=== PATIENT | male | born 1960 | race Caucasian/White ===

== ENCOUNTER 2017-01-21 19:29 | Emergency (ER) | payer OTHER, SELFPAY ==
[2017-01-21] MEDS ORDERED: Sodium Chloride 0.9% 10 ML Syringe FLUSH PRN ×2 (19:53→20:41)
[2017-01-21] MEDS ORDERED: HYDROmorphone 1 MG/ML Syringe IVPUSH ONE ×2 (19:53→20:14)
[2017-01-21] MEDS ORDERED: Ondansetron 4 MG/2 ML SDV IVPUSH ONE (19:54)
[2017-01-21] MEDS ORDERED: Ketorolac 30 MG/ML SDV IVPUSH ONE (19:54)
[2017-01-21] MEDS ORDERED: Iopamidol 612 MG/ML 150 ML Bottle IV SCH (20:45)
--- NOTE | 2017-01-21 23:21 | EDM.PDOC ---
ED HPI GENERAL MEDICAL PROBLEM - General Chief Complaint: Flank Pain Stated Complaint: SEVER RIGHT PAIN Time Seen by Provider: 01/21/17 19:46 Source of Information: Reports: Patient History Limitations: Reports: Physical Impairment - History of Present Illness INITIAL COMMENTS - FREE TEXT/NARRATIVE: This patient complains of severe constant right lower quadrant abdominal pain. It's been going on for 2 hours. There is no history of kidney stones. He does have some history of diverticulitis however. He denies any fever. He denies any dysuria. Right Lower Abdominal Pain Score (Numeric/FACES): 10 - Related Data Allergies Allergy/AdvReac Type Severity Reaction Status Date / Time No Known Allergies Allergy Verified 01/21/17 19:47 Home Meds: Home Meds NK [No Known Home Meds] 01/21/17 [History] Past Medical History Gastrointestinal History: Reports: Other (See Below) Other Gastrointestinal History: colitis Musculoskeletal History: Reports: Amputation - Past Surgical History HEENT Surgical History: Reports: Adenoidectomy Social & Family History - Tobacco Use Smoking Status *Q: Unknown Ever Smoked - Caffeine Use Caffeine Use: Reports: Coffee, Soda - Recreational Drug Use Recreational Drug Use: Yes Recreational Drug Type: Reports: Marijuana/Hashish ED ROS GENERAL - Review of Systems Review Of Systems: See Below Constitutional: Reports: No Symptoms HEENT: Reports: No Symptoms Respiratory: Reports: No Symptoms Cardiovascular: Reports: No Symptoms Endocrine: Reports: No Symptoms GI/Abdominal: Reports: Other (See history of present illness) : Reports: No Symptoms ED EXAM, RENAL/ - Physical Exam Exam: See Below Exam Limited By: Physical Impairment General Appearance: Alert, WD/WN, Severe Distress (Patient had to be medicated before being examined) Eye Exam: Bilateral Eye: Normal Inspection Nose: Normal Inspection Throat/Mouth: Normal Oropharynx Head: Atraumatic Neck: Normal Inspection Respiratory/Chest: Normal Breath Sounds Cardiovascular: Regular Rate, Rhythm GI/Abdominal: Normal Bowel Sounds, Soft, Other (Possible mass in the right lower quadrant. Moderately tender.) (Male) Exam: No Hernia, Normal Inspection Extremities: Normal Inspection Neurological: Alert, Oriented Psychiatric: Normal Affect Skin Exam: Warm, Dry Course - Vital Signs Last Recorded V/S: Last Vital Signs Temp 34.4 C L 01/21/17 19:49 Pulse 73 01/21/17 19:49 Resp 22 H 01/21/17 19:49 BP 140/87 01/21/17 19:49 Pulse Ox 99 01/21/17 19:49 - Orders/Labs/Meds Orders: Active Orders 24 hr Category Date Time Status Abdomen Pelvis w Cont [CT] Stat Exams 01/21/17 20:15 Taken Iopamidol [Isovue-300 (61%)] Med 01/21/17 20:45 Active 126 ml IV . DIRECTED Sodium Chloride 0.9% [Saline Flush] Med 01/21/17 19:53 Active 10 ml FLUSH ASDIRECTED PRN Sodium Chloride 0.9% [Saline Flush] Med 01/21/17 20:41 Active 10 ml FLUSH ONETIME PRN Saline Lock Insert [OM.PC] Urgent Oth 01/21/17 19:53 Ordered Medication Orders Iopamidol (Isovue-300 (61%)) 126 ml IV . DIRECTED RANJITH Last Admin: 01/21/17 20:57 Dose: 150 ml Sodium Chloride (Saline Flush) 10 ml FLUSH ASDIRECTED PRN PRN Reason: Keep Vein Open Last Admin: 01/21/17 20:03 Dose: 10 ml Sodium Chloride (Saline Flush) 10 ml FLUSH ONETIME PRN PRN Reason: PER RADIOLOGY PROTOCOL Last Admin: 01/21/17 20:56 Dose: 10 ml Labs: Laboratory Tests 01/21/17 01/21/17 01/21/17 Range/Units 19:58 19:58 19:58 WBC 10.5 (4.5-11.0) K/uL RBC 4.48 (4.30-5.90) M/uL Hgb 13.9 (12.0-15.0) g/dL Hct 39.7 L (40.0-54.0) % MCV 89 (80-98) fL MCH 31 (27-31) pg MCHC 35 (32-36) % Plt Count 237 (150-400) K/uL Neut % (Auto) 72 H (36-66) % Lymph % (Auto) 18 L (24-44) % [place] % (Auto) 8 H (2-6) % Eos % (Auto) 2 (2-4) % Baso % (Auto) 0 (0-1) % PT (9.5-12.0) sec INR (0.80-1.20) APTT (27.0-36.0) sec Sodium 141 (140-148) mmol/L Potassium 3.8 (3.6-5.2) mmol/L Chloride 105 (100-108) mmol/L Carbon Dioxide 24 (21-32) mmol/L Anion Gap 11.6 (5.0-14.0) mmol/L BUN 23 H (7-18) mg/dL Creatinine 1.2 (0.8-1.3) mg/dL Est Cr Clr Drug Dosing 70.37 mL/min Estimated GFR (MDRD) > 60 (>60) Glucose 113 H (74-106) mg/dL Lactic Acid 1.3 (0.4-2.0) mmol/L Calcium 9.1 (8.5-10.1) mg/dL Total Bilirubin 0.4 (0.2-1.0) mg/dL AST 19 (15-37) U/L ALT 20 (12-78) U/L Alkaline Phosphatase 75 (46-116) U/L Total Protein 6.9 (6.4-8.2) g/dL Albumin 4.1 (3.4-5.0) g/dL Globulin 2.8 (2.3-3.5) g/dL Albumin/Globulin Ratio 1.5 (1.2-2.2) Urine Color Urine Appearance Urine pH (4.5-8.0) Ur Specific [place] (1.008-1.030) Urine Protein (NEGATIVE) mg/dL Urine Glucose (UA) (NEGATIVE) mg/dL Urine Ketones (NEGATIVE) mg/dL Urine Occult Blood (NEGATIVE) Urine Nitrite (NEGAITVE) Urine Bilirubin (NEGATIVE) Urine Urobilinogen (NORMAL) mg/dL Ur Leukocyte Esterase (NEGATIVE) Urine RBC (0-5) Urine WBC (0-5) Ur Epithelial Cells Amorphous Sediment Urine Bacteria Urine Mucus 01/21/17 01/21/17 Range/Units 19:58 22:22 WBC (4.5-11.0) K/uL RBC (4.30-5.90) M/uL Hgb (12.0-15.0) g/dL Hct (40.0-54.0) % MCV (80-98) fL MCH (27-31) pg MCHC (32-36) % Plt Count (150-400) K/uL Neut % (Auto) (36-66) % Lymph % (Auto) (24-44) % [place] % (Auto) (2-6) % Eos % (Auto) (2-4) % Baso % (Auto) (0-1) % PT 11.6 (9.5-12.0) sec INR 1.08 (0.80-1.20) APTT 24.3 L (27.0-36.0) sec Sodium (140-148) mmol/L Potassium (3.6-5.2) mmol/L Chloride (100-108) mmol/L Carbon Dioxide (21-32) mmol/L Anion Gap (5.0-14.0) mmol/L BUN (7-18) mg/dL Creatinine (0.8-1.3) mg/dL Est Cr Clr Drug Dosing mL/min Estimated GFR (MDRD) (>60) Glucose (74-106) mg/dL Lactic Acid (0.4-2.0) mmol/L Calcium (8.5-10.1) mg/dL Total Bilirubin (0.2-1.0) mg/dL AST (15-37) U/L ALT (12-78) U/L Alkaline Phosphatase (46-116) U/L Total Protein (6.4-8.2) g/dL Albumin (3.4-5.0) g/dL Globulin (2.3-3.5) g/dL Albumin/Globulin Ratio (1.2-2.2) Urine Color Yellow Urine Appearance Slightly cloudy Urine pH 5.0 (4.5-8.0) Ur Specific [place] 1.010 (1.008-1.030) Urine Protein 30 H (NEGATIVE) mg/dL Urine Glucose (UA) Normal (NEGATIVE) mg/dL Urine Ketones 15 H (NEGATIVE) mg/dL Urine Occult Blood Large (NEGATIVE) Urine Nitrite Negative (NEGAITVE) Urine Bilirubin Small (NEGATIVE) Urine Urobilinogen 4 (NORMAL) mg/dL Ur Leukocyte Esterase Small (NEGATIVE) Urine RBC 5-10 H (0-5) Urine WBC Not seen (0-5) Ur Epithelial Cells Not seen Amorphous Sediment Not seen Urine Bacteria Not seen Urine Mucus Not seen Meds: Medications Generic Name Dose Route Start Last Admin Trade Name Freq PRN Reason Stop Dose Admin Iopamidol 126 ml 06/24/17 20:45 01/21/17 20:57 Isovue-300 (61%) IV 150 ml . DIRECTED RANJITH Administration Sodium Chloride 10 ml 01/21/17 19:53 01/21/17 20:03 Saline Flush FLUSH 10 ml ASDIRECTED PRN Administration Keep Vein Open Sodium Chloride 10 ml 01/21/17 20:41 01/21/17 20:56 Saline Flush FLUSH 10 ml ONETIME PRN Administration PER RADIOLOGY PROTOCOL Discontinued Medications Generic Name Dose Route Start Last Admin Trade Name Freq PRN Reason Stop Dose Admin Hydromorphone HCl 1 mg 01/21/17 19:53 01/21/17 19:58 Dilaudid IVPUSH 01/21/17 19:54 1 mg ONETIME ONE Administration Hydromorphone HCl 1 mg 01/21/17 20:14 01/21/17 20:19 Dilaudid IVPUSH 01/21/17 20:15 1 mg ONETIME ONE Administration Sodium Chloride 78 mls @ 3 mls/sec 01/21/17 20:41 01/21/17 20:56 Normal Saline IV 01/21/17 20:42 3 mls/sec ONETIME ONE Administration Ketorolac Tromethamine 30 mg 01/21/17 19:54 01/21/17 20:01 Toradol IVPUSH 01/21/17 19:55 30 mg ONETIME ONE Administration Ondansetron HCl 4 mg 01/21/17 19:54 01/21/17 19:59 Zofran IVPUSH 01/21/17 19:55 4 mg ONETIME ONE Administration - Re-Assessments/Exams Free Text/Narrative Re-Assessment/Exam: 01/21/17 23:20 An IV was established. The patient was given Dilaudid 1 mg and Toradol 30 mg IV. This gave just partial relief of pain so was given an additional 1 mg Dilaudid. This controlled the pain and allowed me to do a more full exam. Abdominal pelvic CT showed a 2 mm stone in the distal right ureter near the bladder. The patient was unable to void for quite a while until after drinking several glasses of water. Urinalysis shows no evidence of infection Departure - Departure Time of Disposition: 23:21 Disposition: Home, Self-Care 01 Condition: Fair Clinical Impression: Kidney stone on right side - Discharge Information Forms: ED Department Discharge Additional Instructions: Use Percocet 5/325 one or 2 tablets every 4 hours as needed for pain. You may also take some ibuprofen which will help a lot with passing the stone. Strain the urine sodium no when the stone passes. If you are not better by Monday then see your doctor. If the stone doesn't pass then you at least will need to get the urine rechecked in about a week to make sure there is no longer any blood. If the stone doesn't pass in a reasonable amount of time you will need to see a urologist. Your family doctor can arrange that. - My Orders Last 24 Hours: My Active Orders 01/21/17 19:53 Sodium Chloride 0.9% [Saline Flush] 10 ml FLUSH ASDIRECTED PRN Saline Lock Insert [OM.PC] Urgent 01/21/17 20:15 Abdomen Pelvis w Cont [CT] Stat 01/21/17 20:41 Sodium Chloride 0.9% [Saline Flush] 10 ml FLUSH ONETIME PRN 01/21/17 20:45 Iopamidol [Isovue-300 (61%)] 126 ml IV . DIRECTED - Assessment/Plan Last 24 Hours: My Active Orders 01/21/17 19:53 Sodium Chloride 0.9% [Saline Flush] 10 ml FLUSH ASDIRECTED PRN Saline Lock Insert [OM.PC] Urgent 01/21/17 20:15 Abdomen Pelvis w Cont [CT] Stat 01/21/17 20:41 Sodium Chloride 0.9% [Saline Flush] 10 ml FLUSH ONETIME PRN 01/21/17 20:45 Iopamidol [Isovue-300 (61%)] 126 ml IV . DIRECTED
[2017-01-21 23:24] VITALS: BP 108/69
== END 2017-01-21 23:44 | disposition home or self-care (01) ==
LOC: JP.ED 19:29
DX: N13.2 Hydronephrosis with renal and ureteral calculous obstruction (principal); Z98.890 Other specified postprocedural states
CPT/HCPCS: 36415; 74177; 80053; 81001; 83605; 85025; 85610; 85730; 96374; 96375; 99284; J1170; J1885; J2405; J7030; J7050

== ENCOUNTER 2021-04-23 09:24 | Day surgery (SDC) | payer MEDICAID ==
[~2021-04-23 09:24] MED LIST: Lidocaine 1% with EPINEPHrine 1:100,000 50 ML MDV ONE; Midazolam 1 MG/ML 2 ML SDV ONE; Propofol 200 MG/20 ML SDV ONE; Sodium Chloride 0.9% 10 ML ONE; Sodium Tetradecyl Sulfate 1% 20 MG/2 ML SDV ONE; fentaNYL 100 MCG/2 ML SDV ONE
[2021-04-23] MEDS ORDERED: Sodium Chloride 0.9% 1,000 ML IV SCH (10:00)
[2021-04-23] MEDS ORDERED: Propofol 200 MG/20 ML SDV ONE (10:49)
[2021-04-23] MEDS: Lidocaine 1% w/EPINEPHrine 50 ML, Sodium Bicarbonate 5 MEQ in Sodium Chloride 0.9% 950 ML INJECT SCH ×2 (11:00→13:01)
[2021-04-23] MEDS ORDERED: Sodium Tetradecyl Sulfate 1% 20 MG/2 ML SDV INJECT ONE (11:05)
[2021-04-23] MEDS ORDERED: Sodium Chloride 0.9% 10 ML SDV ONE (11:06)
[2021-04-23] MEDS ORDERED: Lidocaine 1% with EPINEPHrine 1:100,000 50 ML MDV INJECT ONE ×2 (11:08)
[2021-04-23 12:45] VITALS: BP 102/72; PULSE 44
--- NOTE | 2021-04-23 14:33 | OR ---
DATE OF PROCEDURE: 04/23/2021 SURGEON: Lv Hilton MD PROCEDURES: 1. Radiofrequency ablation, left greater saphenous vein. 2. Radiofrequency ablation, right greater saphenous vein. 3. Sclerotherapy, left leg, multiple. 4. Sclerotherapy, right leg, multiple. 5. Compression wrap, left leg ([id number]). 6. Compression wrap, right leg ([id number]). COMPLICATION: None. MOLD INSERT CHANGER: None. ANESTHESIA: MAC. PREOPERATIVE DIAGNOSIS: Venous insufficiency with inflammation and pain. POSTOPERATIVE DIAGNOSIS: Venous insufficiency with inflammation and pain. RISKS: Risks, benefits, alternatives including but not limited to infection, bleeding, DVT formation, chronic wounds, chronic pain, neuropathy, and other risks not listed here were explained to the patient and he wished to proceed. PROCEDURE IN DETAIL: The patient was placed in supine position for the left RFA. The left GSV was addressed first. This was accessed using a 21-gauge needle, exchanged for a 35,000th wire, then exchanged for a 7-[place] sheath. RFA probe was advanced to greater than 3 cm from the saphenofemoral junction. Tumescent fluid was injected in 1 cm jacket around this and verified a second and third time. The probe was deployed x2 proximally and distally, and x1 in all other segments. Sheath and device were then removed. Direct pressure was held for 10 minutes and Dermabond was applied. The other side was then performed in a same manner, same fashion, same sequence in the same technique. Sclerotherapy was then performed on the left and right sides using 0.33% sodium tetradactyl and always drawn back to ensure intravascular injection only. No more than 2 mL was injected in 1 location, 3 on the right, 3 on the left. Two-layer, 2-stage compression wrap was then performed in a distal proximal gradient using [id number] pressure. The patient tolerated the procedure well. Lv Hilton MD /[id number]
== END 2021-04-23 13:10 | disposition home or self-care (01) ==
LOC: JP.SDS 09:24
PROVIDERS: ATTEND Surgery
DX: I87.2 Venous insufficiency (chronic) (peripheral) (principal); I80.9 Phlebitis and thrombophlebitis of unspecified site; G89.29 Other chronic pain; G25.81 Restless legs syndrome; F41.9 Anxiety disorder, unspecified; K21.9 Gastro-esophageal reflux disease without esophagitis; Z98.890 Other specified postprocedural states; Z79.899 Other long term (current) drug therapy
CPT/HCPCS: 36471; 36475; J1642; J2250; J2704; J3010; J7030; J3490

== ENCOUNTER 2022-02-09 07:53 | Emergency (ER) | payer MEDICAID ==
[2022-02-09] MEDS: Lidocaine 2% Jelly 10 ML Urojet MUCMEM ONE (08:07)
[2022-02-09 08:21] VITALS: PULSE 58
[2022-02-09 09:31] LABS: ESTIMATED GFR 102 mL/min (>60)
[2022-02-09 09:56] VITALS: BP 102/67
== END 2022-02-09 10:29 | disposition home or self-care (01) ==
LOC: JP.ED 07:53
DX: R33.9 Retention of urine, unspecified (principal); F17.210 Nicotine dependence, cigarettes, uncomplicated
CPT/HCPCS: 36415; 51702; 80053; 81001; 82550; 85025; 85651; 99283-25